=== PATIENT | male | born 1945 | race Caucasian/White ===

== ENCOUNTER 2017-04-28 23:18 | Inpatient (IN) ==
[2017-04-29] MEDS ORDERED: Amiodarone Premix 360 MG/200 ML BAG IVC SCH (01:15)
[2017-04-29] MEDS ORDERED: Ondansetron 4 MG/2 ML VIAL IVP PRN (01:33)
[2017-04-29] MEDS ORDERED: Naloxone 0.4 MG/ML INJ IVP PRN (01:33)
[2017-04-29] MEDS ORDERED: Amiodarone Premix 360 MG/200 ML BAG IVC ONE (02:14)
[2017-04-29 02:28] LABS: Basophils # 0.1 K/mcL (0.0-0.2); Eosinophils # 0.2 K/mcL (0.0-0.6); Eosinophils % 1.8 %; Hematocrit 41.6 % (37.5-50.1); Hemoglobin 14.2 g/dL (12.9-16.9); Immature Granulocytes % 0.4 % (0-4); Immature Platelets 3.2 % (1.1-6.1); Lymphocytes # 2.7 K/mcL (0.6-4.6); Lymphocytes % 26.5 %; Mean Corpuscular HGB Conc 34.1 g/dL (31.6-35.5); Mean Corpuscular Hemoglobin 29.6 pg (28.0-33.3); Mean Corpuscular Volume 86.7 fL (83.0-100.0); Mean Platelet Volume 9.6 fL (9.4-12.4); Monocytes # 0.8 K/mcL (0.0-1.3); Monocytes % 8.1 %; Neutrophils # 6.4 K/mcL (1.6-8.9); Platelet Count 212 K/mcL (140-400); Segmented Neutrophils % 62.2 %
[2017-04-29 02:33] LABS: INR 2.3; Prothrombin Time 25.2 Seconds (9.4-12.1)
[2017-04-29 02:41] LABS: Alanine Aminotransferase 11 Units/L (0-55); Albumin 3.2 g/dL (3.5-5.0); Alkaline Phosphatase 55 Units/L (38-126); Aspartate Amino Transferase 20 Units/L (5-34); BUN/Creatinine Ratio 11 (6-26); Bilirubin,Total 0.2 mg/dL (0.2-1.2); Blood Urea Nitrogen 10 mg/dL (8-26); Carbon Dioxide 25 mEq/L (19-29); Chloride 105 mEq/L (98-109); Globulin 3.3 g/dL (2.4-3.5); Glucose 96 mg/dL (70-99); Magnesium 1.9 mg/dL (1.6-2.6); Osmolality,Calculated 281 (280-300); Sodium 136 mEq/L (136-145); Total Protein 6.5 g/dL (6.0-8.3); eGFR For African Americans > 60 (> 60); eGFR For Non-African Americans > 60 (> 60)
[2017-04-29] MEDS ORDERED: *HR* Warfarin 5 MG TABLET PO SCH (02:45)
[2017-04-29] MEDS ORDERED: *HR* Warfarin 4 MG TABLET PO SCH ×3 (02:45→18:00)
[2017-04-29] MEDS: diazePAM 5 MG TABLET PO SCH ×2 (02:57→21:37)
[2017-04-29] MEDS: Lisinopril 20 MG TABLET PO SCH ×3 (02:57→21:37)
--- NOTE | 2017-04-29 03:11 | Internal Med History&Physical ---
Date of Encounter: 04/29/17 Time of Encounter: 01:50 Assessment and Plan (1) Ventricular tachycardia Current visit: Yes Status: Acute Patient had syncope yesterday Was found to have V.Tach in ER and got amio bolus and gtt EKG not available for review Will obtain EKG from [facility] ER Continue amio gtt Resume PO amiodarone and BB Cycle cardiac enzymes. Initial troponin is elevated. Could be related to his V.Tach Will check limited ECHO for any WMAs He had stress test Oct, 2016 which showed fixed defect but no reversible defects Cardiology consult AICD device interrogation Admit to inpatient status to step down unit High risk due to risk of lethal arrhythmias Expected to be admitted for at least 2 midnights Expected DC dispo is to home (2) CAD (coronary artery disease) Current visit: Yes Status: Chronic No CP or anginal symptoms though the patient had syncope Cycle cardiac enzymes. Initial troponin is elevated. Could be related to his V.Tach Will check limited ECHO for any WMAs He had stress test Oct, 2016 which showed fixed defect but no reversible defects Continue ASA, statin and BB Cardio consult Qualifiers: Coronary Disease-Associated Artery/Lesion type: [place] artery [place] vs. transplanted heart: [place] heart Associated angina: without angina Qualified Code(s): I25.10 - Atherosclerotic heart disease of [place] coronary artery without angina pectoris (3) HTN (hypertension) Current visit: Yes Status: Chronic Controlled BP Continue home meds Qualifiers: Hypertension type: essential hypertension Qualified Code(s): I10 - Essential (primary) hypertension (4) Tobacco abuse Current visit: Yes Status: Chronic Counselled regarding cessation Patient not willing to quit (5) Atrial fibrillation Current visit: Yes Status: Chronic On coumadin. INR therapeutic. Continue coumadin Patient is currently paced @ 60/min Continue amio gtt, PO amio and BB Qualifiers: Atrial fibrillation type: paroxysmal Qualified Code(s): I48.0 - Paroxysmal atrial fibrillation Internal Medicine - H&P: HPI Chief complaint: Syncope and ventricular tachycardia Admitted From: Hospital to Hospital Transfer Plans for Post Hospital Care: Home History of present illness: Mr. Agudelo is a 71 year old male who has been transferred from [facility] emergency room to [facility] due to further evaluation for ventricular tachycardia. The patient presented to the emergency room at [facility] due to syncope. Patient states that he was out in his yard when he suddenly passed out. He does not remember how long he was unconscious. He denies any urinary or bowel incontinence. He reports having a condon sensation and feeling tired prior to passing out. He denies having lightheadedness, palpitations, chest pain or shortness of breath at the time of passing out. He denies any fever or chills. He denies any nausea, diaphoresis, vomiting, diarrhea or constipation. He denies any abdominal pain, weight changes recently. He reports compliance with his amiodarone. He states that he is due for his yearly checkup of his defibrillator at the end of this month. When he presented to [facility], he was found to have sustained ventricular tachycardia. He was placed on amiodarone drip after being given an amiodarone bolus. While on the drip, he converted to atrial fibrillation with rapid ventricular response. He has been transferred to [facility] for higher level of care and evaluation by cardiology. Currently, he denies any chest pain, shortness of breath or palpitations or feeling lightheaded. He reports that the pacemaker/defibrillator was first placed in 2001 after he had a sudden cardiac arrest. He states that he had replacement of the defibrillator last year. He states that he had stents placed for [place] in 2007 which was the only time he had stents put in. He continues to smoke and is not willing to quit. Past Med Surg Social Fam HX - Past Medical History Attestation: Yes The following information was validated with the patient. Medical history: aortic aneurysm, arthritis, atrial fibrillation, coronary artery disease, hyperlipidemia, hypertension, myocardial infarction, peripheral artery disease, other (Sudden cardiac arrest) Psychiatric history: anxiety, panic disorder - Past Surgical History Surgical History: angioplasty/stent, herniorrhaphy, pacemaker/AICD, other - Social History Smoking Status: Current every day smoker Packs per day: 2 Smokeless Tobacco Status: No Alcohol use: none Drug use: none Current living situation: Home, With Family Activity Level: Independent ambulation Recent Out of Country Travel Within the Last 8 Weeks: No Exposure or Possible Exposure to Illness During Travel: No - Family History Father Family Member Ethnicity: Non- Living Status: Hx Family Cardiac Disorders: Yes Hx Family Respiratory Disorders: No Hx Family Cancer: No Hx Family GI Disorders: No Internal Medicine - H&P: Meds Atenolol [Tenormin] 150 mg PO HS 06/13/15 [History] Benazepril HCl 20 mg PO HS 06/13/15 [History] Cyclobenzaprine [Flexeril] 5 mg PO HS 06/13/15 [History] Diazepam [Valium] 5 mg PO HS 06/13/15 [History] Warfarin [Coumadin] 5 mg PO Q48H 09/13/15 [History] Amiodarone [Cordarone] 200 mg PO HS 10/30/15 [History] Alfuzosin HCl [Uroxatral] 10 mg PO BID 04/22/16 [History] Polyethylene Glycol 3350 [MiraLAX] 17 gm PO DAILY PRN 04/22/16 [History] Psyllium Husk/Aspartame [Metamucil Powder] 174 gm PO DAILY 04/22/16 [History] Clopidogrel [Plavix] 75 mg PO DAILY #30 tablet 11/02/16 [Rx] Digoxin [Lanoxin] 0.125 mcg PO HS 11/02/16 [History] Warfarin [Coumadin] 4 mg PO Q48H #0 11/02/16 [Rx] Allergies No Known Allergies Allergy (Verified 04/29/17 02:00) All Systems PM: A 10-system review of systems was performed and is negative for pertinent findings except as documented above in the HPI. Review of systems: 10 systems have been reviewed and are negative except as mentioned in the history of present illness - Constitutional Vitals: Pulse Pulse Ox 79 97 04/29/17 01:32 04/29/17 01:32 Exam: Gen.: Lying in bed. No acute distress. Eyes: Pupils equal, round and reactive to light. Extraocular muscles intact. ENT: Moist mucous membranes. No oropharyngeal erythema or discharge. Chest: Clear to auscultation bilaterally. No adventitious sounds present. Pacemaker/defibrillator on the left side of the chest. CVS: First and second heart sounds present. No murmurs, rubs or gallops. Regular rate and rhythm. Abdomen: Soft, nontender, nondistended. Bowel sounds present. No hepatosplenomegaly. Skin: No decubitus ulcers appreciated. STEAM FLATTENER: No focal neuro deficits present. Psychiatric: Alert, awake and oriented to time, place and person. Lymphatic system: No lymphadenopathy appreciated Internal Med - H&P Results - Labs CBC & Chem 7: 04/29/17 02:19 04/29/17 02:19 Labs: Short CBC 04/29/17 Range/Units 02:19 WBC 10.3 (4.3-11.1) K/mcL Hgb 14.2 D (12.9-16.9) g/dL Hct 41.6 (37.5-50.1) % Plt Count 212 (140-400) K/mcL Neutrophils # 6.4 (1.6-8.9) K/mcL BMP 04/29/17 02:19 Sodium 136 Potassium 4.0 Chloride 105 Carbon Dioxide 25 BUN 10 Creatinine 0.90 Glucose 96 Calcium 9.0 Cardiac Enzymes 04/29/17 Range/Units 02:19 Troponin I 0.16 H* (0-0.03) ng/mL Liver Function 04/29/17 Range/Units 02:19 Total Bilirubin 0.2 (0.2-1.2) mg/dL AST 20 (5-34) Units/L ALT 11 (0-55) Units/L Alkaline Phosphatase 55 (38-126) Units/L Albumin 3.2 L (3.5-5.0) g/dL - EKG Data EKG comments: 04/29/17 03:12 - EKG not available for review - Diagnostic Studies Chest x-ray Status: image reviewed by me (Dual-lead AICD in place. No acute abnormality detected)
[2017-04-29] MEDS ORDERED: 0.9 % Sodium Chloride 500 ML IVC ONE (04:04)
[2017-04-29] MEDS ORDERED: Psyllium 1 PACKET POWD.PACK PO SCH (09:00)
[2017-04-29] MEDS ORDERED: *HR* Amiodarone 200 MG TABLET PO SCH (09:00)
--- NOTE | 2017-04-29 09:12 | Event Note ---
Date of Encounter: 04/29/17 Time of Encounter: 08:40 Patient is a 71y/o male with PMH of Atrial Fibrillation on anticoagulation, CAD , HTN, s/p AICD, HLD, PAD who was transferred from [facility] for further management of Ventricular tachycardia. Patient was found to be in Vtach upon arrival and was sustaining HR around 180s. He received Amiodarone bolus and was placed on Amiodarone drip which provided adequate rate control and converted his rhythm to Atrial Fibrillation. Patient seen and examined at bedside. He is resting comfortably in bed and reports of no distress at this time. Denies any chest pain, palpitations, dizziness, or any discomfort at this time. Rate currently controlled on low dose amiodarone gtt. He did not receive his PO Amiodarone dose overnight. Will start his home PO amiodarone dose at this time and titrate off the drip. Patient reports of taking Atenolol, Digoxin, and Amiodarone at bedtime. BP within acceptable range at this time. Will continue to closely monitor. Cardiology consultation requested for AICD device interrogation follow up 2D echo Patient currently adequately anticoagulated with Coumadin. INR within therapeutic range. Will continue to monitor. Goal INR: 2-3
[2017-04-29] MEDS ORDERED: hydroCHLOROthiazide 25 MG TABLET PO SCH (10:00)
[2017-04-29] MEDS ORDERED: *HR* Digoxin 0.125 MG TABLET PO SCH ×2 (10:00→21:00)
--- NOTE | 2017-04-29 14:32 | Cardiology Consult Note ---
Date of Encounter: 04/29/17 Time of Encounter: 14:30 Assessment and Plan (1) Ventricular tachycardia Current Visit: Yes Status: Acute Per Cardiology: ICD interrogation showed 1 ICD shock for Vfib. Per discussion with Dr. Keon Cortez, stop amio gtt, increase amio gtt to 200mg PO BID, will stop digoxin, will continue current dose of BB. Will stop HCTZ in case need to titrate BB. Will proceed with [facility] for eval of CAD causing VF and shock. Mild trop 0.16 suspect d/t ICD shock-- do not suspect NSTEMI, no cardiac rehab warranted. Mg 1.9 and K 4.0. Current EF 45%. (2) Atrial fibrillation Current Visit: Yes Status: Chronic Per Cardiology: History of PAF on amiodarone 200mg PO daily, atenolol 150mg PO daily and digoxin 0.125mg PO daily. He is anticoagulated with coumadin. Currently rate controlled. ICD interrogation showed A. fib with RVR. Increasing amiodarone to 200 mg by mouth twice a day per discussion with Dr. Keon Cortez. We'll hold Coumadin for now with plans for left heart catheterization for further ischemic evaluation. Will consider bridging when INR less than 2.0. Qualifiers: Atrial fibrillation type: paroxysmal Qualified Code(s): I48.0 - Paroxysmal atrial fibrillation (3) CAD (coronary artery disease) Current Visit: Yes Status: Chronic Per Cardiology: History of CAD with last heart catheterization September 2008 with drug-eluting stent to mid LAD 90% and distal LAD 70% lesion. Negative nuclear stress test October 2016. On asa, BB. Consider adding statin. Qualifiers: Coronary Disease-Associated Artery/Lesion type: [place] artery [place] vs. transplanted heart: [place] heart Associated angina: without angina Qualified Code(s): I25.10 - Atherosclerotic heart disease of [place] coronary artery without angina pectoris (4) Tobacco abuse Current Visit: Yes Status: Chronic Per Cardiology: Continues to smoke. Smoking cessation encouraged. Does not want nicotine patch. (5) AAA (abdominal aortic aneurysm) Current Visit: No Status: Chronic Per Cardiology: History of endovascular AAA and left common iliac stent/angioplasty by Dr. Gilmore 10/2016. Qualifiers: Presence of rupture: without rupture Qualified Code(s): I71.4 - Abdominal aortic aneurysm, without rupture Discussion w patient/family: The assessment and plan as outlined above was discussed with the patient and/or family members who expressed understanding and agreement. All questions were answered. Thank you for involving us in the care of your patient. Please call with any questions. History of Present Illness Consult date: 04/29/17 Requesting physician: Rebeca Green Consult reason: VT, ICD shock, afib RVR Chief complaint: Syncope History of present illness: ELECTROPHYSIOLOGY CONSULT: Previous recordfs reviewed: "Mr. Agudelo is a 71 year old male presenting for a syncopal event. Medical history is significant for myocardial infarction associated with cardiac arrest associated with memory impairment from prolonged resuscitation. He has an AICD in place and a history of PAF. He's had periods of AF RVR associated with device discharge leading to the addition of amiodarone. He recently underwent stress testing in October 2016 demonstrating infarct without ischemia. LVEF 40 -45% range on prior studies. Last C was in 2007 where he underwent PCI to mid and distal LAD. Patient states he had feeling of heart racing for several hours yesterday and then in the evening after letting his dog back in the house, he suddenly passed out without warning. He thinks he was unconscious for a few seconds. He woke up without confusion. He called 911. He denies recent chest pain. He admits compliance with medications. He denies new or OTC medications". Patient confirms above findings. He denies any chest pain, shortness of breath, palpitations over the past few weeks prior to this event. Ports complaints medications. Denies any active bleeding or blood loss. Reports compliance with Coumadin. Reports pending tooth extraction next Tuesday. Past Med Surg Social Fam HX - Past Medical History Attestation: Yes The following information was validated with the patient. Source: patient, old records reviewed, obtained from family Medical history: aortic aneurysm, arthritis, atrial fibrillation, coronary artery disease, hyperlipidemia, hypertension, myocardial infarction, peripheral artery disease, other (Sudden cardiac arrest) Psychiatric history: anxiety, panic disorder - Past Surgical History Surgical History: angioplasty/stent, herniorrhaphy, pacemaker/AICD, other - Social History Smoking Status: Current every day smoker Packs per day: 2 Smokeless Tobacco Status: No Alcohol use: none Drug use: none - Family History Father Family Member Ethnicity: Non- Living Status: Hx Family Cardiac Disorders: Yes Hx Family Respiratory Disorders: No Hx Family Cancer: No Hx Family GI Disorders: No Medications and Allergies Amiodarone [Cordarone] 200 mg PO DAILY 04/29/17 [History] Aspirin [Lo-Dose Aspirin EC] 81 mg PO DAILY 04/29/17 [History] Atenolol [Tenormin] 150 mg PO DAILY 04/29/17 [History] Benazepril HCl [Lotensin] 20 mg PO DAILY 04/29/17 [History] Cyclobenzaprine [Flexeril] 10 mg PO BID 04/29/17 [History] Digoxin [Lanoxin] 0.125 mg PO DAILY 04/29/17 [History] Lactobacillus Acidophilus [Acidophilus] 3 each PO DAILY 04/29/17 [History] Polyethylene Glycol 3350 [MiraLAX bowel prep] 17 gm PO DAILY 04/29/17 [History] Warfarin [Coumadin] 4 mg PO Q48H 04/29/17 [History] Warfarin [Coumadin] 4.5 mg PO Q48H 04/29/17 [History] hydroCHLOROthiazide [Hydrochlorothiazide] 12.5 mg PO DAILY 04/29/17 [History] Allergies No Known Allergies Allergy (Verified 04/29/17 02:00) All Systems Review: A 10-system review of systems was performed and is negative for pertinent findings except as documented above in the HPI. - Cardiovascular Cardiovascular: as per HPI, syncope - Musculoskeletal Musculoskeletal: back pain Physical Examination Vital Signs, Last 4 Hours Temp Pulse Resp BP Pulse Ox 04/29/17 13:03 59 22 116/68 92 04/29/17 10:47 97.7 F 63 20 123/78 99 General: Conversant, No Apparent Distress HEENT: Atraumatic, Normocephaly, Mucus Membranes Moist Neck: No JVD, Normal carotid pulses Cardiac: Normal S1 and S2, No Murmur, Other (Irregularly irregular) Lungs: Normal Breath Sounds, No Wheeze, Rales, Rhonchi Neuro: Alert and responsive, No focal deficits noted Abdomen: Soft, Non-Tender Skin: No rashes noted on visualized skin Musculoskeletal: No Chest Wall Tenderness Extremities: No Clubbing, No Cyanosis, No Edema, Normal Pulses Results 04/29/17 02:19 04/29/17 02:19 Lab Results Laboratory Tests 04/29/17 04/29/17 04/29/17 02:19 02:19 02:19 INR 2.3 Potassium 4.0 Magnesium 1.9 AST 20 ALT 11 Troponin I 0.16 H* 04/29/17 08:00 INR Potassium Magnesium AST ALT Troponin I 0.14 H* Active Medications Acetaminophen (Tylenol) 650 mg PO Q6HR PRN PRN Reason: Mild Pain (1-3) Stop: 10/29/17 01:34 Amiodarone HCl (Cordarone) 200 mg PO BID [facility] Stop: 10/29/17 21:01 Aspirin (Aspirin) 81 mg PO DAILY [facility] Stop: 10/30/17 09:01 Atenolol (Tenormin) 150 mg PO HS [facility] Stop: 10/29/17 21:01 Cyclobenzaprine HCl (Flexeril) 5 mg PO HS [facility] Stop: 10/29/17 02:46 Last Admin: 04/29/17 02:57 Dose: 5 mg Diazepam (Valium) 5 mg PO HS [facility] Stop: 10/29/17 02:46 Last Admin: 04/29/17 02:57 Dose: 5 mg Lisinopril (Zestril) 20 mg PO HS [facility] Stop: 10/29/17 02:46 Last Admin: 04/29/17 04:05 Dose: Not Given Naloxone HCl (Narcan) 0.4 mg IVP Q2MIN PRN PRN Reason: Opioid Reversal Stop: 10/29/17 01:34 Ondansetron HCl (Zofran) 4 mg IVP Q8HR PRN PRN Reason: Nausea And Vomiting Stop: 10/29/17 01:34 Polyethylene Glycol (Miralax) 17 gm PO DAILY PRN PRN Reason: Constipation Stop: 10/29/17 02:40 Psyllium Hydrophilic Mucilloid (Metamucil Fiber Singles Packet) 1 packet PO DAILY@1999 [facility] Stop: 10/29/17 18:01 - Imaging and Cardiology Chest Xray: report reviewed (from [facility]-- no acute CP process) Stress Test: report reviewed Cardiac cath: pending - EKG Interpretation EKG results cardiology: personally reviewed Consult Discharge Plan - Plan Referrals: Joselo Thomas MD [Primary Care Provider] -
--- NOTE | 2017-04-29 14:47 | Cardiology Consult Note ---
Date of Encounter: 04/29/17 Time of Encounter: 10:00 Assessment and Plan (1) Syncope and collapse Current Visit: No Status: Acute Mr. Agudelo had a syncopal event yesterday. We interrogated his device demonstrating device discharge possibly for ventricular fibrillation. EP consult has been requested. He has been started on amio gtt. May need to consider LHC. Electrolytes WNL. (2) Atrial fibrillation Current Visit: Yes Status: Chronic History of PAF on amiodarone, BB and digoxin. He is anticoagulated with coumadin. Qualifiers: Atrial fibrillation type: paroxysmal Qualified Code(s): I48.0 - Paroxysmal atrial fibrillation Discussion w patient/family: The assessment and plan as outlined above was discussed with the patient and/or family members who expressed understanding and agreement. All questions were answered. Thank you for involving us in the care of your patient. Please call with any questions. History of Present Illness Consult date: 04/29/17 Requesting physician: Wolf Villar Consult reason: Syncope Chief complaint: Syncope, palpitations History of present illness: Mr. Agudelo is a 71 year old male presenting for a syncopal event. Medical history is significant for myocardial infarction associated with cardiac arrest associated with memory impairment from prolonged resuscitation. He has an AICD in place and a history of PAF. He's had periods of AF RVR associated with device discharge leading to the addition of amiodarone. He recently underwent stress testing in October 2016 demonstrating infarct without ischemia. LVEF 40 -45% range on prior studies. Last [facility] was in 2007 where he underwent PCI to mid and distal LAD. Patient states he had feeling of heart racing for several hours yesterday and then in the evening after letting his dog back in the house, he suddenly passed out without warning. He thinks he was unconscious for a few seconds. He woke up without confusion. He called 911. He denies recent chest pain. He admits compliance with medications. He denies new or OTC medications. Past Med Surg Social Fam HX - Past Medical History Attestation: Yes The following information was validated with the patient. Medical history: aortic aneurysm, arthritis, atrial fibrillation, coronary artery disease, hyperlipidemia, hypertension, myocardial infarction, peripheral artery disease, other (Sudden cardiac arrest) Psychiatric history: anxiety, panic disorder - Past Surgical History Surgical History: angioplasty/stent, herniorrhaphy, pacemaker/AICD, other - Social History Smoking Status: Current every day smoker Packs per day: 2 Smokeless Tobacco Status: No Alcohol use: none Drug use: none - Family History Father Family Member Ethnicity: Non- Living Status: Hx Family Cardiac Disorders: Yes Hx Family Respiratory Disorders: No Hx Family Cancer: No Hx Family GI Disorders: No Medications and Allergies Amiodarone [Cordarone] 200 mg PO DAILY 04/29/17 [History] Aspirin [Lo-Dose Aspirin EC] 81 mg PO DAILY 04/29/17 [History] Atenolol [Tenormin] 150 mg PO DAILY 04/29/17 [History] Benazepril HCl [Lotensin] 20 mg PO DAILY 04/29/17 [History] Cyclobenzaprine [Flexeril] 10 mg PO BID 04/29/17 [History] Digoxin [Lanoxin] 0.125 mg PO DAILY 04/29/17 [History] Lactobacillus Acidophilus [Acidophilus] 3 each PO DAILY 04/29/17 [History] Polyethylene Glycol 3350 [MiraLAX bowel prep] 17 gm PO DAILY 04/29/17 [History] Warfarin [Coumadin] 4 mg PO Q48H 04/29/17 [History] Warfarin [Coumadin] 4.5 mg PO Q48H 04/29/17 [History] hydroCHLOROthiazide [Hydrochlorothiazide] 12.5 mg PO DAILY 04/29/17 [History] Allergies No Known Allergies Allergy (Verified 04/29/17 02:00) All Systems Review: A 10-system review of systems was performed and is negative for pertinent findings except as documented above in the HPI. - Cardiovascular Cardiovascular: as per HPI Physical Examination Vital Signs, Last 4 Hours Temp Pulse Resp BP Pulse Ox 04/29/17 13:03 59 22 116/68 92 04/29/17 10:47 97.7 F 63 20 123/78 99 General: Conversant, No Apparent Distress HEENT: Atraumatic, Normocephaly, Mucus Membranes Moist Neck: No JVD, Normal carotid pulses Cardiac: Reg Rate and Rhythm, Normal S1 and S2, No Murmur Lungs: Normal Breath Sounds, No Wheeze, Rales, Rhonchi Neuro: Alert and responsive, No focal deficits noted Abdomen: Soft, Other (bowel sounds present) Extremities: No Edema, Normal Pulses Results 04/29/17 02:19 04/29/17 02:19 Lab Results 04/29/17 04/29/17 04/29/17 02:19 02:19 02:19 WBC 10.3 Hgb 14.2 D Hct 41.6 Plt Count 212 INR 2.3 Sodium Potassium Chloride Carbon Dioxide BUN Creatinine Glucose Calcium Magnesium Total Bilirubin AST ALT Alkaline Phosphatase Troponin I 0.16 H* 04/29/17 04/29/17 04/29/17 02:19 08:00 13:54 WBC Hgb Hct Plt Count INR Sodium 136 Potassium 4.0 Chloride 105 Carbon Dioxide 25 BUN 10 Creatinine 0.90 Glucose 96 Calcium 9.0 Magnesium 1.9 Total Bilirubin 0.2 AST 20 ALT 11 Alkaline Phosphatase 55 Troponin I 0.14 H* 0.11 H* - Imaging and Cardiology Stress Test: report reviewed (10/2016) Echo: report reviewed (Limited Echo 04/29; EF 45%) Cardiac cath: report reviewed (2007) - EKG Interpretation EKG results cardiology: personally reviewed Consult Discharge Plan - Plan Referrals: Joselo Thomas MD [Primary Care Provider] -
[2017-04-29] MEDS: Psyllium 1 PACKET POWD.PACK PO SCH ×2 (15:56→16:55)
[2017-04-29] MEDS ORDERED: Warfarin perPT PO PRN (18:00)
[2017-04-29] MEDS: *HR* Amiodarone 200 MG TABLET PO SCH (21:36)
[2017-04-29] MEDS: POLYETHYLENE GLYCOL PO SCH (21:36)
[2017-04-29] MEDS: SENNOSIDES 25 MG PO SCH (21:36)
[2017-04-29] MEDS: METAMUCIL PO SCH (21:36)
[2017-04-30 04:29] LABS: Basophils # 0.1 K/mcL (0.0-0.2); Basophils % 0.8 %; Eosinophils # 0.3 K/mcL (0.0-0.6); Eosinophils % 2.7 %; Hematocrit 42.3 % (37.5-50.1); Hemoglobin 14.2 g/dL (12.9-16.9); Immature Granulocytes % 0.5 % (0-4); Lymphocytes # 2.1 K/mcL (0.6-4.6); Lymphocytes % 22.2 %; Mean Corpuscular HGB Conc 33.6 g/dL (31.6-35.5); Mean Corpuscular Hemoglobin 29.5 pg (28.0-33.3); Mean Corpuscular Volume 87.8 fL (83.0-100.0); Mean Platelet Volume 9.3 fL (9.4-12.4); Monocytes # 0.9 K/mcL (0.0-1.3); Monocytes % 9.2 %; Neutrophils # 6.1 K/mcL (1.6-8.9); Platelet Count 195 K/mcL (140-400); Red Blood Count 4.82 M/mcL (4.19-5.50); Red Cell Distribution Width 13.9 % (11.5-14.5); Segmented Neutrophils % 64.6 %
[2017-04-30 04:37] LABS: Prothrombin Time 21.5 Seconds (9.4-12.1)
[2017-04-30 04:43] LABS: BUN/Creatinine Ratio 14 (6-26); Blood Urea Nitrogen 11 mg/dL (8-26); Calcium 8.7 mg/dL (8.6-10.8); Carbon Dioxide 24 mEq/L (19-29); Chloride 104 mEq/L (98-109); Glucose 90 mg/dL (70-99); Magnesium 1.9 mg/dL (1.6-2.6); Osmolality,Calculated 281 (280-300); Phosphorous 3.6 mg/dL (2.3-4.7); Potassium 3.9 mEq/L (3.5-4.5); Sodium 136 mEq/L (136-145); eGFR For African Americans > 60 (> 60); eGFR For Non-African Americans > 60 (> 60)
--- NOTE | 2017-04-30 08:17 | Cardiology Progress Note ---
Date of Encounter: 04/30/17 Time of Encounter: 09:00 Assessment and Plan (1) Ventricular fibrillation seen on school lunch monitor Current Visit: Yes Status: Acute Per Cardiology: ICD interrogation showed 1 ICD shock for Vfib. Now on amio 200mg PO BID, off digoxin, remains on home BB. Mild trop 0.16 suspect d/t ICD shock-- do not suspect NSTEMI. Mg 1.9 and K 3.9. Current EF 45%. Will proceed with LHC for eval of CAD causing VF and shock. Coumadin on hold-- INR 2.0, discussed and reviewed with Dr. Green, no reversal clinically warranted, will plan for LHC tomorrow if INR less than 1.8. (2) Atrial fibrillation Current Visit: Yes Status: Chronic Per Cardiology: History of PAF-- currently on amiodarone and BB. ICD interrogation showed A. fib with RVR. Telemetry reviewed the past 12 hours shows sinus rhythm with atrial pacing with no recurrence of A. fib. Anti-coagulated with Coumadin, however currently on hold for pending catheterization. Will resume once catheterization completed. Of note, patient was supposed to hold Coumadin beginning yesterday for pending tooth extraction next week as well. No need for bridging. Qualifiers: Atrial fibrillation type: paroxysmal Qualified Code(s): I48.0 - Paroxysmal atrial fibrillation (3) CAD (coronary artery disease) Current Visit: Yes Status: Chronic Per Cardiology: History of CAD with last heart catheterization September 2008 with drug-eluting stent to mid LAD 90% and distal LAD 70% lesion. Negative nuclear stress test October 2016. CP free. On asa, BB. Will add statin. Qualifiers: Coronary Disease-Associated Artery/Lesion type: [place] artery [place] vs. transplanted heart: [place] heart Associated angina: without angina Qualified Code(s): I25.10 - Atherosclerotic heart disease of [place] coronary artery without angina pectoris (4) Tobacco abuse Current Visit: Yes Status: Chronic Per Cardiology: Continues to smoke. Smoking cessation encouraged. Does not want nicotine patch. (5) AAA (abdominal aortic aneurysm) Current Visit: No Status: Chronic Per Cardiology: History of endovascular AAA and left common iliac stent/angioplasty by Dr. Gilmore 10/2016. Qualifiers: Presence of rupture: without rupture Qualified Code(s): I71.4 - Abdominal aortic aneurysm, without rupture Discussion w patient/family: The assessment and plan as outlined above was discussed with the patient and/or family members who expressed understanding and agreement. All questions were answered. Thank you for involving us in the care of your patient. Please call with any questions. Subjective Principal diagnosis: Vfib Interval history: Patient denies any chest pain, shortness of breath, palpitations, or ICD shocks. Objective Vital Signs, Last 4 Hours Temp Pulse Resp BP Pulse Ox 04/30/17 07:40 97.6 F 04/30/17 04:18 97.2 F L 59 18 115/64 99 General: Conversant, No Apparent Distress Cardiac: Reg Rate and Rhythm, Normal S1 and S2, No Murmur Lungs: Normal Breath Sounds, No Wheeze, Rales, Rhonchi Skin: No rashes noted on visualized skin Extremities: No Edema, Normal Pulses Results 04/30/17 04:05 04/30/17 04:05 Lab Results Laboratory Tests 04/30/17 04:05 INR 2.0 04/30/17 04:05 Potassium 3.9 Magnesium 1.9 Active Medications Acetaminophen (Tylenol) 650 mg PO Q6HR PRN PRN Reason: Mild Pain (1-3) Stop: 10/29/17 01:34 Amiodarone HCl (Cordarone) 200 mg PO BID FEI Stop: 10/29/17 21:01 Last Admin: 04/30/17 08:48 Dose: 200 mg Aspirin (Aspirin) 81 mg PO DAILY FEI Stop: 10/30/17 09:01 Last Admin: 04/30/17 08:48 Dose: 81 mg Atenolol (Tenormin) 150 mg PO HS FEI Stop: 10/29/17 21:01 Last Admin: 04/29/17 21:37 Dose: 150 mg Cyclobenzaprine HCl (Flexeril) 5 mg PO HS FEI Stop: 10/29/17 02:46 Last Admin: 04/29/17 21:36 Dose: 5 mg Diazepam (Valium) 5 mg PO HS FEI Stop: 10/29/17 02:46 Last Admin: 04/29/17 21:37 Dose: 5 mg Lisinopril (Zestril) 20 mg PO HS FEI Stop: 10/29/17 02:46 Last Admin: 04/29/17 21:37 Dose: 20 mg Naloxone HCl (Narcan) 0.4 mg IVP Q2MIN PRN PRN Reason: Opioid Reversal Stop: 10/29/17 01:34 Ondansetron HCl (Zofran) 4 mg IVP Q8HR PRN PRN Reason: Nausea And Vomiting Stop: 10/29/17 01:34 Pharmacy Profile Note (Patient Taking Own Medication) 4 each PO DAILY FEI Stop: 10/29/17 22:01 Last Admin: 04/29/17 21:36 Dose: 4 each Pharmacy Profile Note (Patient Taking Own Medication) 17 each PO BID FEI Stop: 10/29/17 21:01 Last Admin: 04/29/17 21:36 Dose: 17 each Pharmacy Profile Note (Patient Taking Own Medication) 2 each PO DAILY FEI Stop: 10/29/17 21:16 Last Admin: 04/29/17 21:36 Dose: 2 each - Imaging and Cardiology Cardiac cath: pending - EKG Interpretation EKG results cardiology: other (Telemetry reviewed with average heart rate past 12 hours 67, atrial paced, sinus rhythm, no A. fib or VF or VT noted) Consult Discharge Plan - Plan Referrals: Joselo Thomas MD [Primary Care Provider] -
[2017-04-30] MEDS: *HR* Amiodarone 200 MG TABLET PO SCH ×2 (08:48→22:09)
[2017-04-30] MEDS: Aspirin 81 MG TAB.CHEW PO SCH (08:48)
--- NOTE | 2017-04-30 08:54 | Internal Med Progress Note ---
Date of Encounter: 04/30/17 Time of Encounter: 08:10 - Subjective Interval history: Patient seen and examined at bedside. Resting comfortably in bed and reports of feeling well at this time. No overnight issues reported. As per cardiology consultation, patient may go for [facility] today pending reversal of therapeutic INR level. Assessment and Plan (1) Ventricular tachycardia Current visit: Yes Status: Acute Resolved, s/p AICD interrogation Cardiology evaluation appreciated Patient may go for [facility] today Will follow up with cardiology in regards to transfusing FFP for INR reversal continue home dose of BB, Amiodarone, Digoxin at this time (2) CAD (coronary artery disease) Current visit: Yes Status: Chronic No signs of angina present at this time Continue ASA, statin and BB cardiology management as listed above Qualifiers: Coronary Disease-Associated Artery/Lesion type: [place] artery [place] vs. transplanted heart: [place] heart Associated angina: without angina Qualified Code(s): I25.10 - Atherosclerotic heart disease of [place] coronary artery without angina pectoris (3) HTN (hypertension) Current visit: Yes Status: Chronic BP within acceptable range Continue home meds Qualifiers: Hypertension type: essential hypertension Qualified Code(s): I10 - Essential (primary) hypertension (4) Tobacco abuse Current visit: Yes Status: Chronic Patient reports of smoking 1.5ppd and refuses to quit at this time Smoking cessation counseling provided Refused nicotine replacement therapy at this time. (5) Atrial fibrillation Current visit: Yes Status: Chronic Rate currently controlled with BB, Amiodarone, and Digoxin Holding Coumadin for C (possibly today-04/30/17) Qualifiers: Atrial fibrillation type: paroxysmal Qualified Code(s): I48.0 - Paroxysmal atrial fibrillation (6) DVT prophylaxis Current visit: Yes Status: Acute Holding Coumadin at this time ICD - Constitutional Vitals: Temp Pulse Resp BP Pulse Ox 97.6 F 61 18 115/64 99 04/30/17 07:40 04/30/17 04:18 04/30/17 04:18 04/30/17 04:18 04/30/17 04:18 General appearance: Present: cooperative, A&O X 3, pleasant, no acute distress, answers questions appropriately - Head Head exam: Present: atraumatic, normocephalic - Eye Eye exam: Present: normal appearance, conjuntiva pink, sclera anicteric - Respiratory Respiratory exam: Present: CTAB. Absent: accessory muscle use, rales, rhonchi, wheezes - Cardiovascular Cardiovascular exam: Present: irregular rhythm, +S1, +S2 - GI/Abdominal GI/Abdominal exam: Present: normal bowel sounds, soft, no peritoneal signs. Absent: distended, tenderness - Extremities Exam Extremities exam: Present: warm, radial pulses palpable and symetrical. Absent : calf tenderness, pedal edema - Neurological Exam Neurological exam: Present: alert, oriented X3 - Psychiatric Psychiatric exam: Present: normal affect, normal mood Internal Medicine: Result - Labs CBC & Chem 7: 04/30/17 04:05 04/30/17 04:05 Labs: Short CBC 04/30/17 Range/Units 04:05 WBC 9.5 (4.3-11.1) K/mcL Hgb 14.2 (12.9-16.9) g/dL Hct 42.3 (37.5-50.1) % Plt Count 195 (140-400) K/mcL Neutrophils # 6.1 (1.6-8.9) K/mcL BMP 04/30/17 04:05 Sodium 136 Potassium 3.9 Chloride 104 Carbon Dioxide 24 BUN 11 Creatinine 0.81 Glucose 90 Calcium 8.7 Cardiac Enzymes 04/29/17 Range/Units 13:54 Troponin I 0.11 H* (0-0.03) ng/mL - ABG Interpretation ABG results: PT/INR, D-dimer PT 21.5 Seconds (9.4-12.1) H 04/30/17 04:05 Consult Discharge Plan - Plan Referrals: Joselo Thomas MD [Primary Care Provider] -
[2017-04-30] MEDS ORDERED: *HR* Warfarin 5 MG TABLET PO SCH ×2 (09:00→18:00)
[2017-04-30] MEDS: POLYETHYLENE GLYCOL PO SCH ×2 (09:11→22:10)
[2017-04-30] MEDS: METAMUCIL PO SCH ×3 (09:11→20:18)
[2017-04-30] MEDS: SENNOSIDES 25 MG PO SCH ×2 (09:11→22:11)
[2017-04-30] MEDS ORDERED: Warfarin 0.5 MG, Warfarin 4 MG PO SCH (18:00)
[2017-04-30] MEDS: Acetaminophen 325 MG TABLET PO PRN (19:41)
[2017-04-30] MEDS: Lisinopril 20 MG TABLET PO SCH (22:09)
[2017-04-30] MEDS: diazePAM 5 MG TABLET PO SCH (22:10)
[2017-05-01 03:28] LABS: INR 1.5; Prothrombin Time 16.9 Seconds (9.4-12.1)
[2017-05-01 03:37] LABS: BUN/Creatinine Ratio 16 (6-26); Blood Urea Nitrogen 13 mg/dL (8-26); Calcium 8.7 mg/dL (8.6-10.8); Carbon Dioxide 22 mEq/L (19-29); Chloride 105 mEq/L (98-109); Glucose 88 mg/dL (70-99); Magnesium 1.9 mg/dL (1.6-2.6); Osmolality,Calculated 282 (280-300); Phosphorous 4.3 mg/dL (2.3-4.7); Potassium 3.8 mEq/L (3.5-4.5); Sodium 136 mEq/L (136-145); eGFR For African Americans > 60 (> 60); eGFR For Non-African Americans > 60 (> 60)
[2017-05-01 03:41] LABS: Basophils # 0.1 K/mcL (0.0-0.2); Basophils % 1.1 %; Eosinophils # 0.2 K/mcL (0.0-0.6); Eosinophils % 2.6 %; Hemoglobin 14.1 g/dL (12.9-16.9); Immature Granulocytes % 0.4 % (0-4); Lymphocytes # 2.1 K/mcL (0.6-4.6); Lymphocytes % 24.2 %; Mean Corpuscular HGB Conc 34.4 g/dL (31.6-35.5); Mean Corpuscular Hemoglobin 30.3 pg (28.0-33.3); Mean Platelet Volume 9.5 fL (9.4-12.4); Monocytes # 0.9 K/mcL (0.0-1.3); Monocytes % 10.9 %; Neutrophils # 5.2 K/mcL (1.6-8.9); Platelet Count 198 K/mcL (140-400); Red Blood Count 4.66 M/mcL (4.19-5.50); Red Cell Distribution Width 13.8 % (11.5-14.5); Segmented Neutrophils % 60.8 %
[2017-05-01] MEDS: *HR* Amiodarone 200 MG TABLET PO SCH ×2 (08:03→22:27)
[2017-05-01] MEDS: Aspirin 81 MG TAB.CHEW PO SCH (08:03)
[2017-05-01] MEDS: METAMUCIL PO SCH (08:04)
[2017-05-01] MEDS: SENNOSIDES 25 MG PO SCH (08:05)
[2017-05-01] MEDS: POLYETHYLENE GLYCOL PO SCH ×2 (08:05→20:23)
--- NOTE | 2017-05-01 09:59 | Event Note ---
Date of Encounter: 05/01/17 Time of Encounter: 10:00 - Cardiology Event Note Laboratory Tests 05/01/17 02:29 INR 1.5 Patient denies any CP. SOB, palps. Denies ICD shocks. [facility] today.
--- NOTE | 2017-05-01 10:24 | Internal Med Progress Note ---
Date of Encounter: 05/01/17 Time of Encounter: 10:22 - Assessment and plan (1) Syncope and collapse Current Visit: No Status: Acute (2) CAD (coronary artery disease) Current Visit: Yes Status: Chronic Qualifiers: Coronary Disease-Associated Artery/Lesion type: [place] artery [place] vs. transplanted heart: [place] heart Associated angina: without angina Qualified Code(s): I25.10 - Atherosclerotic heart disease of [place] coronary artery without angina pectoris (3) HTN (hypertension) Current Visit: Yes Status: Chronic Qualifiers: Hypertension type: essential hypertension Qualified Code(s): I10 - Essential (primary) hypertension (4) Tobacco abuse Current Visit: Yes Status: Chronic (5) Atrial fibrillation Current Visit: Yes Status: Chronic Qualifiers: Atrial fibrillation type: paroxysmal Qualified Code(s): I48.0 - Paroxysmal atrial fibrillation (6) AICD (automatic implantable cardioverter defibrillator) at end of life Current Visit: No Status: Acute Qualifiers: Encounter type: subsequent encounter Qualified Code(s): T82.198D - Other mechanical complication of other cardiac electronic device, subsequent encounter - Subjective Interval history: Mr. Alireza Santoro is a 71-year-old male who has been transferred from intensive care and he is a new patient for me. He will was admitted for syncope. He was noted to have A. fib with RVR and ventricular tachycardia and his defibrillator discharge. Cardiology has seen him and amiodarone was added. Echo showed LV ejection fraction 45% with dilated LV . His is planned for left heart catheter however INR is slightly elevated. - Constitutional Vitals: Temp Pulse Resp BP Pulse Ox 97.6 F 61 18 140/90 97 05/01/17 07:10 05/01/17 07:10 05/01/17 07:10 05/01/17 07:10 05/01/17 08:07 General appearance: Present: cooperative, A&O X 3, pleasant, no acute distress, answers questions appropriately - Head Head exam: Present: atraumatic, normocephalic - Eye Eye exam: Present: PERRL, conjuntiva pink, sclera anicteric Pupils: Present: PERRL - Neck Neck exam general surgery: Present: supple, trachea midline. Absent: lymphadenopathy - Respiratory Respiratory exam: Present: CTAB. Absent: accessory muscle use, rales, rhonchi, wheezes - Cardiovascular Cardiovascular exam: Present: RRR, +S1, +S2. Absent: diastolic murmur, gallop, rubs, systolic murmur - GI/Abdominal GI/Abdominal exam: Present: normal bowel sounds, soft, no peritoneal signs. Absent: distended, tenderness - Extremities Exam Extremities exam: Present: warm, radial pulses palpable and symetrical. Absent : calf tenderness, cyanotic, pedal edema - Neurological Exam Neurological exam: Present: CN II-XII intact, oriented X3, no focal deficits. Absent: pronater drift, facial droop, speech deficit - Skin Skin exam: Present: dry, intact Internal Medicine: Result - Labs CBC & Chem 7: 05/01/17 02:29 05/01/17 02:29 Labs: Short CBC 05/01/17 Range/Units 02:29 WBC 8.5 (4.3-11.1) K/mcL Hgb 14.1 (12.9-16.9) g/dL Hct 41.0 (37.5-50.1) % Plt Count 198 (140-400) K/mcL Neutrophils # 5.2 (1.6-8.9) K/mcL BMP 05/01/17 02:29 Sodium 136 Potassium 3.8 Chloride 105 Carbon Dioxide 22 BUN 13 Creatinine 0.80 Glucose 88 Calcium 8.7 - ABG Interpretation ABG results: PT/INR, D-dimer PT 16.9 Seconds (9.4-12.1) H 05/01/17 02:29 Consult Discharge Plan - Plan Referrals: Joselo Thomas MD [Primary Care Provider] -
[2017-05-01] MEDS ORDERED: *HR* Heparin 10,000 UNIT/10 ML VIAL ONE (12:56)
[2017-05-01] MEDS ORDERED: 0.9 % Sodium Chloride 1,000 ML ONE ×2 (12:56→13:26)
[2017-05-01] MEDS ORDERED: Heparin 1,000 UNITS/500 mL NS 500 ML ONE (12:56)
[2017-05-01] MEDS ORDERED: *HR* Midazolam HCl 5 MG/5 ML VIAL IVP ONE (13:26)
[2017-05-01] MEDS ORDERED: *HR* FentaNYL (PF) 100 MCG/2 ML VIAL ONE (13:26)
--- NOTE | 2017-05-01 14:09 | Pre-Sedation Evaluation ---
Pre-sedation evaluation - Pre-sedation checklist Date of procedure: 05/01/17 Procedure: left heart cath Recent Vitals: Last Vital Signs Temp 97.6 F 05/01/17 07:10 Pulse 61 05/01/17 07:10 Resp 18 05/01/17 07:10 BP 140/90 05/01/17 07:10 Pulse Ox 97 05/01/17 08:07 H&P (including ROS) documented in medical record: Yes Previous reaction to sedatives/anesthetics: No Dietary Status: NPO after Midnight Airway Assessment: Patient can open mouth completely, TMJ function normal Dentition: No loose teeth or bridges Possible difficult airway: No ASA Classification *see protocol: CLASS III-Severe systemic disease, CLASS IV- Severe systemic disease/constant threat to pt's life Plan of Care: Pt appropriate candidate for procedure/moderate/conscious sedation
--- NOTE | 2017-05-01 14:11 | Procedure Note ---
Date of procedure: 05/01/17 Pre-op diagnosis: CMP CAD, V tach Post-op diagnosis: same Anesthesia: local Surgeon: Aman Brown Estimated blood loss (cc): 20 Pathology: none sent Condition: stable Disposition: floor
--- NOTE | 2017-05-01 14:31 | Invasive Diagnostic Lab Proc ---
Name: Alireza Agudelo [facility] Date of Study: 05/01/2017 Date: 1945 Ht: 72.8in Medical Record#: [id number] Age: 71 Wt: 203.27lb Gender: Male BSA: 2.16 Order #: [id number] BMI: 26.97 Physicians Procedure Physician: Aman Brown MD Referring MD: Referring MD: Staff Name Position Time In Alecia Cherry RT (R) Monitor 01:18 PM Damian Farias RN Lab Manager 01:18 PM Jazlyn Dawn RT (R) Scrub 01:18 PM Indications Indication Non-Stemi Procedures Performed Procedure L HRT ARTERY/VENTRICLE ANGIO Pre-Procedure Checklist Informed consent is complete signed and on chart. H\\T\\P is on chart. ID band is on and ID verified with patient. Patient NPO for procedure The procedure was described for the patient and questions were answered. Blood Pressure: 111/77 ECG is on chart. Rhythm: NSR Plan of Care Patient will tolerate the procedure without complications. Adequate level of comfort will be maintained. Hemodynamics will remain stable Patient will recover from procedure without complications. Respiratory function will be maintained. Cardiac rhythm will remain stable. Patient temperature will be maintained. Patient and/or family have verbalized understanding of the procedure. Patient Education Chief Complaint/Reason for Test: Cardiac Cath Developmental Category: Adult (18-64 years) Developmentally Appropriate for Age: Yes Learning Barriers: None Education Needs: Procedure Education Method: Verbal Information Taught: Cardiac Cath Educational Evaluation: Able to repeat information Intravenous Access Time IV Size Location DC'd Fluid/Drip Rate Units RN 01:30 PM 20g 1 /" Patent On Arrival Rt Wrist 0.9NaCl 25 ml/hr Damian Farias RN Allergies No Known Allergies BENADRYL Simvastatin Fluvastatin Pitavastatin Atorvastatin diphenhydramine pain meds cholesterol meds Vital Signs Time BP (mmHg) HR (bpm) O2 Sat. RR (bpm) LOC / % 5 = Fully awake and oriented or at pre-proc level 01:19 PM / % 5 = Fully awake and oriented or at pre-proc level 01:19 PM / % 3 = Answers simple questions/follows commands 01:37 PM / % 4 = Oriented but drowsy 01:53 PM / % 4 = Oriented but drowsy 01:38 PM 156 / 93 62 96 % 21 01:41 PM 157 / 99 61 100 % 24 01:42 PM 157 / 101 61 98 % 21 01:44 PM 155 / 90 60 99 % 26 01:47 PM 146 / 92 60 97 % 12 01:50 PM 146 / 92 60 99 % 18 01:53 PM 147 / 88 60 98 % 24 01:56 PM 141 / 77 60 97 % 21 01:59 PM 138 / 84 60 99 % 20 02:02 PM 143 / 85 62 100 % 24 02:05 PM 153 / 90 62 99 % 35 02:08 PM 153 / 94 61 99 % 22 02:11 PM 150 / 96 60 98 % 27 02:14 PM 144 / 93 60 99 % 34 02:17 PM 136 / 89 60 99 % 17 02:20 PM 143 / 85 60 99 % Procedural Medications Time Medication Dose Units Method Given By 01:41 PM Oxygen 2 L/min nasal cannula Damian Farias RN 01:42 PM Versed 2 mg Intravenous Damian Farias RN 01:42 PM Fentanyl 50 mcg Intravenous Damian Farias RN 01:47 PM Lidocaine 2% 20 ml Subcutaneous Aman Brown MD ASA Classification: CLASS II- Mild systemic disease (i.e. well-controlled diabetes, hypertension, asthma, cigarette smoking) Cyndi Score Preprocedure Postprocedure Activity 2- Moves 4 extremities sustained head lift Activity 2- Moves 4 extremities sustained head lift Circulation 2- SBP +/= 20 points of pre-anesthetic level Circulation 2- SBP +/= 20 points of pre-anesthetic level Consciousness 2- Awake and alert oriented x 3 Consciousness 2- Awake and alert oriented x 3 O2 Saturation 2- Able to maintain O2 satruation of 92% on room air O2 Saturation 2- Able to maintain O2 satruation of 92% on room air Respiratory 2- Able to deep breathe and cough well Respiratory 2- Able to deep breathe and cough well Total Score 10 Total Score 10 Contrast Agent: Isovue Diagnostic Contrast: 75 ml Total Contrast: 75 ml Fluoro Dose: 481 mGy Procedure Log Time Note Enter By 01:18 PM Pt arrived to terrazzo laborer 2 at 13:18 twilson 01:18 PM Patient charges- Angio tray pack, Navilyst 3mm J, Pulse Oximetry and ACIST tubing and transducer twilson 01:18 PM IV Supplies used: J loop Angio Cath. twilson 01:18 PM Case Delayed no twilson :18 PM Alecia Cherry RT (R) Position: Monitor Time in: :18 twilson :18 PM Damian Farias RN Position: Lab Manager Time in: :18 twilson :19 PM Jazlyn Dawn RT (R) Position: Scrub Time in: :18 twilson :19 PM ASA Class CLASS II- Mild systemic disease (i.e. well-controlled diabetes, hypertension, asthma, cigarette smoking) twilson : PM Time: 13:19 Patient comfortable and pain free: Yes ilson : PM Time: 13:19LOC: 5 = Fully awake and oriented or at pre-proc level twilson :34 PM Physician arrived 13: twilson : PM Meet and greet completed ilson :34 PM Sign in performed according to hospital policy. twilson :34 PM Procedure start : twilson :37 PM Time: :LOC: 3 = Answers simple questions/follows commands twilson PM Time: 13:19 Patient comfortable and pain free: Yes twilson : PM CathStat :37 PM Vitals capture started with the following parameters, Patient=Adult, Interval=3 min, Initial Rzzswaep=151 mmHg, Deflation Rate=5 mmHg, Cuff placed on Right Arm 01:38 PM HR=62 bpm, WTKV=379/93 mmhg, SpO2=96.0 %, Resp=21 B/min 01:41 PM HR=61 bpm, PMRC=875/99 mmhg, CrK8=734.0 %, Resp=24 B/min 01:41 PM Hair removed from procedure site in procedure lab using clippers. Bilateral groin prepped with Chloraprep by Alecia Cherry RT (R), safety strap applied then patient was draped. Skin intact. tw: PM Recorded ECG: HR=61 Condition=Condition 1 01:41 PM Time: 13:41 Oxygen on at 2 L/min per nasal cannula by Damian Farias RN ilson :42 PM Time: 13:42 Versed 2 mg Intravenous Given by Damian Farias RN gregory :42 PM Time: 13:42 Fentanyl 50 mcg Intravenous Given by Damian Farias RN ilson :42 PM NIBP STAT measurement started. 01:42 PM HR=61 bpm, ISVA=823/101 mmhg, SpO2=98.0 %, Resp=21 B/min 01:44 PM HR=60 bpm, YTIE=884/90 mmhg, SpO2=99.0 %, Resp=26 B/min 01:46 PM Time out performed according to hospital policy twilson 01:47 PM HR=60 bpm, NHIF=350/92 mmhg, SpO2=97.0 %, Resp=12 B/min 01:47 PM Pressure channel 1 zeroed. 01:47 PM Time: 13:47 20 ml Lidocaine 2% to right groin Subcutaneous Given by Aman Brown MD twilson 01:49 PM Access obtained by percutaneous puncture. 5Fr 10cm Terumo Roosevelt sheath placed in right Femoral artery. [id number] twilson 01:50 PM HR=60 bpm, XSJL=304/92 mmhg, SpO2=99.0 %, Resp=18 B/min 01:50 PM 5Fr FL 4 catheter inserted over the wire DN twilson 01:50 PM Wire removed twilson 01:51 PM LCA angiography performed in multiple views. twilson 01:51 PM Recorded Pressure: Ao, HR=60, Condition=Condition 1 (Aorta) Ao 129/77/99 01:51 PM Recorded Pressure: Ao, HR=60, Condition=Condition 1 (Aorta) Ao 134/82/103 01:53 PM HR=60 bpm, DZKX=887/88 mmhg, SpO2=98.0 %, Resp=24 B/min 01:53 PM Wire reinserted twilson 01:53 PM Catheter removed twilson 01:53 PM 5Fr FR 4 catheter inserted over the wire DN twilson 01:53 PM Time: 13:37 Patient comfortable and pain free: Yes twilson 01:53 PM Time: 13:37LOC: 4 = Oriented but drowsy twilson 01:53 PM Wire removed twilson 01:54 PM RCA angiography performed in multiple views. twilson 01:55 PM Wire reinserted twilson 01:56 PM Catheter removed twilson 01:56 PM HR=60 bpm, RVQU=734/77 mmhg, SpO2=97.0 %, Resp=21 B/min 01:58 PM 5Fr Pigtail catheter inserted over the wire DN twilson 01:58 PM Catheter selectively placed in left ventricle twilson 01:58 PM Wire removed twilson :58 PM Recorded Pressure: LV, HR=60, Condition=Condition 1 (Left Ventricle) LV 133/5/17 01:58 PM Bolus angiogram of left Ventricle complete: 10 ml/sec for a total of 30 mls twilson :59 PM HR=60 bpm, DZXU=455/84 mmhg, SpO2=99.0 %, Resp=20 B/min 01:59 PM Recorded Pressure: LV, Ao, HR=60, Condition=Condition 1 (Left Ventricle) LV 138/6/19, (Aorta) Ao 141/72/97 02:00 PM Wire reinserted twilson 02:00 PM Catheter removed twilson 02:00 PM Wire removed twilson 02:00 PM Bolus angiogram of right Femoral complete: 2 ml/sec for a total of 4 mls twilson 02: PM Procedure completed at 14:01 twilson 02:01 PM Sign out completed: Radiation Dose 480.86 mGy Fluoro Time: 2.7 Isovue 370 - 200ml contrast 75 ml given by Aman Brown MD. Complications: NoneCardiac Rehab Consult needed: NoConfirmed administered medications: Yes twilson 02:02 PM HR=62 bpm, QHUL=757/85 mmhg, DeJ4=125.0 %, Resp=24 B/min 02:04 PM Arterial sheath pulled using manual compression and V+ Pad for 15 minutes by Jazlyn Dawn RT (R) twilson 02:04 PM Isovue 370 - 200ml,1 Bottle(s) used. twilson 02:04 PM Post ECG NSR twilson 02:04 PM Post Blood Pressure 143/85 twilson 02:05 PM HR=62 bpm, NVDK=791/90 mmhg, SpO2=99.0 %, Resp=35 B/min 02:06 PM Information taught Cardiac Cath twilson 02:06 PM Education needs Procedure, Plan of Care, and Responsibilities of Patient in Care twilson 02:06 PM Learning barriers :None twilson 02:06 PM Education Methods Verbal twilson 02:06 PM Education evaluation Able to repeat information twilson 02:06 PM Family placed in consult room. twilson 02:08 PM HR=61 bpm, TOHV=474/94 mmhg, SpO2=99.0 %, Resp=22 B/min 02:08 PM Time: 13:53LOC: 4 = Oriented but drowsy twilson 02:08 PM Time: 13:53 Patient comfortable and pain free: Yes twilson 02:08 PM Coronary Dominance: right twilson 02: PM Lesion found in Proximal RCA. Pre Stenosis: 100 Pre ISABELLE Flow: twilson 02:09 PM Right Coronary, Right Posterior Descending Arteries with Right Posterolateral and Acute Marginal branches with 100 % stenosis. If graft is supplying this area, 0 % stenosis twilson 02: PM Lesion found in Mid LAD. Pre Stenosis: 25 Pre ISABELLE Flow: twilson 02:09 PM Mid/Distal Left Anterior Descending Coronary Artery and diagonal branches with 25% stenosis. If graft is supplying this area, 0 % stenosis twilson 02:11 PM HR=60 bpm, TEGX=214/96 mmhg, SpO2=98.0 %, Resp=27 B/min 02:14 PM HR=60 bpm, OERS=396/93 mmhg, SpO2=99.0 %, Resp=34 B/min 02:17 PM HR=60 bpm, UHMW=760/89 mmhg, SpO2=99.0 %, Resp=17 B/min 02:20 PM HR=60 bpm, VXMI=215/85 mmhg, SpO2=99.0 % 02:22 PM Report given to Nichol BRUSH Pt taken to 3A Room #52. 14:21 twilson 02:22 PM Site status No bleeding/hematoma - Rt Groin as reported by Jazlyn Dawn RT (R) at 14:22 twilson 02:22 PM Opsite applied twilson 02:22 PM Patient out of room: 14:22 twilson 02:22 PM Vitals capture stopped. 02:23 PM 14:23 Post Pulses Bilateral DP \\T\\ PT 2+ twilson Complications Complication None Hemodynamics Pressures Site Systolic/A Wave Diastolic/V Wave Mean AO 129 77 99 AO 134 82 103 LV 133 5 17 LV 138 6 19 AO 141 72 97 Post Procedure Information Blood Pressure: 143/85 mmHg Rhythm: NSR Post procedural instructions were given Closure Device Time Device Success/Fail 05/01/2017 2:06:00 PM Manual Compression Successful Site Checks Time Location Status Staff Sheath In? Note 02:22 PM Rt Groin No bleeding/hematoma Jazlyn Dawn RT (R) Pulses Time Site Pre-Procedure Post-Procedure Note 05/01/2017 1:30:00 PM Bilateral DP \\T\\ PT 2+ 05/01/2017 1:30:00 PM Bilateral radial 1+ 2:23:00 PM Bilateral DP \\T\\ PT 2+ Updated by RT Ministerio (R) on 05/01/2017 2:24:07 PM electronically signed on 05/01/2017 2:25:56 PM with status of Final
--- NOTE | 2017-05-01 14:44 | Invasive Diagnostic Lab ---
Name: Alireza Agudelo [facility] Date of Study: 05/01/2017 Date: 1945 Ht: 184.9 cm /72.8 in Medical Record#: [id number] Age: 71 Wt: 92.2 kg / 203.27 lb Account/Order#: [id number] Gender: Male BSA: 2.16 Order #: [id number] Fluoro Dose: 481 mGy BMI: 26.97 Procedure Physician: Aman Brown MD Referring MD: Referring MD: Procedures Performed: LEFT HEART CATH Indications: Non-Stemi Impressions: There is severe one vessel coronary artery disease. There is moderate to severe LV Dysfunction EF 25% Recommendations: Optimal medical therapy of patient's disease. Aggressive risk factor modification. Procedure Access obtained in the right Femoral artery by percutaneous puncture Complications: None Contrast: Isovue 75ml Closure Device: Manual Compression Hemodynamics: Pressures Site Systolic/ A Wave Diastolic/ V Wave End Diastolic/ Mean HR AO 129 77 99 60 AO 134 82 103 60 LV 133 5 17 60 LV 138 6 19 60 AO 141 72 97 60 LV Ventriculography Ejection Method: LV Gram Ejection Fraction: 25% Wall Motion: GU Anterobasal Normal Anterolateral Normal Apical: Akinesis Inferoapical Moderate Hypokinesis Inferobasal Normal Coronary Dominance: right Lesion Findings/Interventions * Left Main Coronary Artery The LMCA is angiographically free of disease. * Left Anterior Descending There is a 25% stenosis in the Mid LAD. * Circumflex The Circumflex is angiographically free of disease. The 1st Marginal is angiographically free of disease. * Right Coronary Artery There is a chronic 100% stenosis in the Proximal RCA. The lesion has collaterals which feed from left to right. Updated by RT Ministerio (R) on 05/01/2017 2:22:27 PM Aman Brown MD electronically signed on 05/01/2017 2:40:56 PM with status of Final
[2017-05-01] MEDS: Acetaminophen 325 MG TABLET PO PRN ×2 (14:50→20:31)
--- NOTE | 2017-05-01 16:22 | Internal Med Progress Note ---
Date of Encounter: 05/01/17 Time of Encounter: 16:20 - Assessment and plan (1) Syncope and collapse Current Visit: No Status: Acute (2) CAD (coronary artery disease) Current Visit: Yes Status: Chronic Qualifiers: Coronary Disease-Associated Artery/Lesion type: [place] artery [place] vs. transplanted heart: [place] heart Associated angina: without angina Qualified Code(s): I25.10 - Atherosclerotic heart disease of [place] coronary artery without angina pectoris (3) HTN (hypertension) Current Visit: Yes Status: Chronic Qualifiers: Hypertension type: essential hypertension Qualified Code(s): I10 - Essential (primary) hypertension (4) Tobacco abuse Current Visit: Yes Status: Chronic (5) Atrial fibrillation Current Visit: Yes Status: Chronic Qualifiers: Atrial fibrillation type: paroxysmal Qualified Code(s): I48.0 - Paroxysmal atrial fibrillation (6) AICD (automatic implantable cardioverter defibrillator) at end of life Current Visit: No Status: Acute Qualifiers: Encounter type: subsequent encounter Qualified Code(s): T82.198D - Other mechanical complication of other cardiac electronic device, subsequent encounter (7) Ventricular fibrillation seen on cardiac rehabilitation program director Current Visit: Yes Status: Acute - Subjective Interval history: Mr. Alireza Santoro is a 71-year-old male who has been transferred from intensive care and he is a new patient for me. He will was admitted for syncope. He underwent V. fib arrest and to use given CPR. He was noted to have A. fib with RVR and ventricular tachycardia and his defibrillator discharge. Cardiology has seen him and amiodarone was added. Echo showed LV ejection fraction 45% with dilated LV . His is planned for left heart catheter however INR is slightly elevated. At this point he is asymptomatic. Patient's sister wanted to know about the defibrillator device interrogation. I suggested to addressed this issue with the cardiology floor coverings installer who has been consulted who are very specialized in this field. - Constitutional Vitals: Temp Pulse Resp BP Pulse Ox 98.1 F 60 16 135/78 98 05/01/17 16:16 05/01/17 16:16 05/01/17 16:16 05/01/17 16:16 05/01/17 16:16 General appearance: Present: cooperative, A&O X 3, pleasant, no acute distress, answers questions appropriately Internal Medicine: Result - Labs CBC & Chem 7: 05/01/17 02:29 05/01/17 02:29 Labs: Short CBC 05/01/17 Range/Units 02:29 WBC 8.5 (4.3-11.1) K/mcL Hgb 14.1 (12.9-16.9) g/dL Hct 41.0 (37.5-50.1) % Plt Count 198 (140-400) K/mcL Neutrophils # 5.2 (1.6-8.9) K/mcL BMP 05/01/17 02:29 Sodium 136 Potassium 3.8 Chloride 105 Carbon Dioxide 22 BUN 13 Creatinine 0.80 Glucose 88 Calcium 8.7 - ABG Interpretation ABG results: PT/INR, D-dimer PT 16.9 Seconds (9.4-12.1) H 05/01/17 02:29 Consult Discharge Plan - Plan Referrals: Joselo Thomas MD [Primary Care Provider] -
[2017-05-01] MEDS: Lisinopril 20 MG TABLET PO SCH (22:27)
[2017-05-01] MEDS: diazePAM 5 MG TABLET PO SCH (22:28)
[2017-05-02 05:40] LABS: INR 1.6; Prothrombin Time 17.1 Seconds (9.4-12.1)
[2017-05-02] MEDS: Aspirin 81 MG TAB.CHEW PO SCH (08:20)
[2017-05-02] MEDS: METAMUCIL PO SCH (08:21)
[2017-05-02] MEDS: SENNOSIDES 25 MG PO SCH (08:21)
[2017-05-02] MEDS: *HR* Amiodarone 200 MG TABLET PO SCH (08:21)
[2017-05-02] MEDS: POLYETHYLENE GLYCOL PO SCH (08:21)
--- NOTE | 2017-05-02 10:24 | Cardiology Progress Note ---
Date of Encounter: 05/02/17 Time of Encounter: 09:00 Assessment and Plan (1) Ventricular fibrillation seen on cardiac rn Current Visit: Yes Status: Acute Per Cardiology: ICD interrogation showed 1 ICD shock for Vfib. Now on amio 200mg PO BID, off digoxin, remains on home BB. Mild trop 0.16 suspect d/t ICD shock-- do not suspect NSTEMI. Mg & K ok. Current EF 45%. Left heart catheterization showed chronically occluded proximal RCA 100% lesion with collaterals left to right. Continue with increased dose of amiodarone. Cardiology will sign off, reconsult as needed, follow-up scheduled. (2) Atrial fibrillation Current Visit: Yes Status: Chronic Per Cardiology: History of PAF-- currently on amiodarone and BB. ICD interrogation showed A. fib with RVR. Telemetry reviewed the past 12 hours shows sinus rhythm with atrial pacing with no recurrence of A. fib. Anti-coagulated with Coumadin, however has been on hold for [facility]. Ideally, would resume, but patient was supposed be holding already for pending tooth extraction on Tuesday. Recommend continue to hold and resume after tooth extraction. INR managed by [place] [facility] --will notify office. Patient will check INR next Tuesday. Patient's verbalized understanding and agreed with plan. No need for bridging. Qualifiers: Atrial fibrillation type: paroxysmal Qualified Code(s): I48.0 - Paroxysmal atrial fibrillation (3) CAD (coronary artery disease) Current Visit: Yes Status: Chronic Per Cardiology: History of CAD with last heart catheterization September 2008 with drug-eluting stent to mid LAD 90% and distal LAD 70% lesion. Current cath shows chronically occluded Prox RCA 100%. CP free. On asa, BB, and statin. Qualifiers: Coronary Disease-Associated Artery/Lesion type: [place] artery [place] vs. transplanted heart: [place] heart Associated angina: without angina Qualified Code(s): I25.10 - Atherosclerotic heart disease of [place] coronary artery without angina pectoris (4) Tobacco abuse Current Visit: Yes Status: Chronic Per Cardiology: Continues to smoke. Smoking cessation encouraged. (5) AAA (abdominal aortic aneurysm) Current Visit: No Status: Chronic Per Cardiology: History of endovascular AAA and left common iliac stent/angioplasty by Dr. Gilmore 10/2016. Qualifiers: Presence of rupture: without rupture Qualified Code(s): I71.4 - Abdominal aortic aneurysm, without rupture Discussion w patient/family: The assessment and plan as outlined above was discussed with the patient and/or family members who expressed understanding and agreement. All questions were answered. Thank you for involving us in the care of your patient. Please call with any questions. Subjective Principal diagnosis: Vfib Interval history: Patient denies any chest pain, shortness of breath, palpitations, or ICD shocks. Reports mild R groin soreness. Objective Vital Signs, Last 4 Hours Temp Pulse Resp BP Pulse Ox 05/02/17 08:27 96 05/02/17 07:41 98.1 F 62 16 120/76 96 General: Conversant, No Apparent Distress HEENT: Atraumatic, Normocephaly, Mucus Membranes Moist Neck: Normal carotid pulses Cardiac: Reg Rate and Rhythm, Normal S1 and S2, No Murmur Lungs: Normal Breath Sounds, No Wheeze, Rales, Rhonchi Neuro: Alert and responsive, No focal deficits noted Skin: No rashes noted on visualized skin, Other (Right groin site trying intact , mild ecchymosis, no hematoma, no bleeding, right pedis and posterior tibial pulses 2+ palpable) Musculoskeletal: No Chest Wall Tenderness Extremities: No Clubbing, No Cyanosis, No Edema, Normal Pulses Other: howard draining clear yellow urine Results 05/01/17 02:29 05/01/17 02:29 Lab Results 05/02/17 04:58 INR 1.6 Active Medications Acetaminophen (Tylenol) 650 mg PO Q6HR PRN PRN Reason: Mild Pain (1-3) Stop: 10/29/17 01:34 Last Admin: 05/01/17 20:31 Dose: 650 mg Amiodarone HCl (Cordarone) 200 mg PO BID [facility] Stop: 10/29/17 21:01 Last Admin: 05/02/17 08:21 Dose: 200 mg Aspirin (Aspirin) 81 mg PO DAILY [facility] Stop: 10/30/17 09:01 Last Admin: 05/02/17 08:20 Dose: 81 mg Atenolol (Tenormin) 150 mg PO HS [facility] Stop: 10/29/17 21:01 Last Admin: 05/01/17 22:27 Dose: 150 mg Atorvastatin Calcium (Lipitor) 40 mg PO HS [facility] Stop: 10/30/17 21:01 Last Admin: 05/01/17 22:27 Dose: 40 mg Cyclobenzaprine HCl (Flexeril) 5 mg PO HS [facility] Stop: 10/29/17 02:46 Last Admin: 05/01/17 22:28 Dose: 5 mg Diazepam (Valium) 5 mg PO HS [facility] Stop: 10/29/17 02:46 Last Admin: 05/01/17 22:28 Dose: 5 mg Lisinopril (Zestril) 20 mg PO HS [facility] Stop: 10/29/17 02:46 Last Admin: 05/01/17 22:27 Dose: 20 mg Naloxone HCl (Narcan) 0.4 mg IVP Q2MIN PRN PRN Reason: Opioid Reversal Stop: 10/29/17 01:34 Ondansetron HCl (Zofran) 4 mg IVP Q8HR PRN PRN Reason: Nausea And Vomiting Stop: 10/29/17 01:34 Pharmacy Profile Note (Patient Taking Own Medication) 4 each PO DAILY [facility] Stop: 10/29/17 22:01 Last Admin: 05/02/17 08:21 Dose: Not Given Pharmacy Profile Note (Patient Taking Own Medication) 17 each PO BID [facility] Stop: 10/29/17 21:01 Last Admin: 05/02/17 08:21 Dose: Not Given Pharmacy Profile Note (Patient Taking Own Medication) 2 each PO DAILY [facility] Stop: 10/29/17 21:16 Last Admin: 05/02/17 08:21 Dose: Not Given - Imaging and Cardiology Cardiac cath: report reviewed - EKG Interpretation EKG results cardiology: other (avg HR 64, no VT or VF noted) Consult Discharge Plan - Plan Referrals: Joselo Thomas MD [Primary Care Provider] -
[2017-05-02 11:26] VITALS: BP 115/72
--- NOTE | 2017-05-02 13:42 | Discharge Summary ---
Date of Encounter: 05/02/17 Time of Encounter: 13:41 - Discharge Diagnosis (1) Ventricular fibrillation seen on clinical research monitor Priority: Primary Status: Acute (2) Syncope and collapse Priority: Primary Status: Acute Comments: Secondary to ventricular fibrillation (3) CAD (coronary artery disease) Priority: Secondary Status: Chronic Qualifiers: Coronary Disease-Associated Artery/Lesion type: [place] artery [place] vs. transplanted heart: [place] heart Associated angina: without angina Qualified Code(s): I25.10 - Atherosclerotic heart disease of [place] coronary artery without angina pectoris (4) HTN (hypertension) Priority: Secondary Status: Chronic Qualifiers: Hypertension type: essential hypertension Qualified Code(s): I10 - Essential (primary) hypertension (5) Tobacco abuse Priority: Secondary Status: Chronic (6) Atrial fibrillation Priority: Secondary Status: Chronic Qualifiers: Atrial fibrillation type: paroxysmal Qualified Code(s): I48.0 - Paroxysmal atrial fibrillation (7) AAA (abdominal aortic aneurysm) Priority: Secondary Status: Chronic Qualifiers: Presence of rupture: without rupture Qualified Code(s): I71.4 - Abdominal aortic aneurysm, without rupture (8) Ischemic cardiomyopathy Priority: Secondary Status: Chronic - Discharge Medications Prescriptions: Amiodarone [Cordarone] 200 mg PO BID #60 tablet Home Medications: Aspirin [Lo-Dose Aspirin EC] 81 mg PO DAILY 04/29/17 [History] Atenolol [Tenormin] 150 mg PO DAILY 04/29/17 [History] Benazepril HCl [Lotensin] 20 mg PO DAILY 04/29/17 [History] Cyclobenzaprine [Flexeril] 10 mg PO BID 04/29/17 [History] Lactobacillus Acidophilus [Acidophilus] 3 each PO DAILY 04/29/17 [History] Polyethylene Glycol 3350 [MiraLAX bowel prep] 17 gm PO DAILY 04/29/17 [History] Warfarin [Coumadin] 4 mg PO Q48H 04/29/17 [History] Warfarin [Coumadin] 4.5 mg PO Q48H 04/29/17 [History] hydroCHLOROthiazide [Hydrochlorothiazide] 12.5 mg PO DAILY 04/29/17 [History] Amiodarone [Cordarone] 200 mg PO BID #60 tablet 05/02/17 [Rx] Allergies/Adverse Reactions: Allergies No Known Allergies Allergy (Verified 04/29/17 02:00) Procedures/tests Complete & Pending: Procedures Performed prior 72 hours Category Date Time Status CL Cardiac Catheterization [CL] Routine Md Senior Research Scientist 05/01/17 09:57 Completed Date of admission: 04/29/17 03:13 Primary care physician: Joselo Thomas MD Consults: 04/29/17 08:28 Consult to Cardiology [CONS] Routine Comment: Dr House to call Cardiology Consulting Provider: Cardiology Elissa Reason for Consult: V Tach, elevated trop Call Completed: Yes 04/29/17 12:35 Consult to Electrophysiology (EP) [CONS] Routine Consulting Provider: Electrophysiology Elissa Reason for Consult: Syncope Call Completed: Yes - Patient Status Disposition: Home, Self-Care Condition: Good Overall status at discharge: patient is progressing back to baseline - Discharge Instructions Follow Up With: Joselo Thomas MD [Primary Care Provider] - Additional Instructions: Follow-up with primary care physician within the next 7 days, follow up with cardiology within the next 1-2 weeks. Hold Coumadin and aspirin until tooth extraction. Increased dose of amiodarone to 200 mg twice a day. Discontinue digoxin, continue atenolol. Quit smoking - Diet and Activity Activity: increase activity as tolerated Diet: low fat, low cholesterol Hospital course: Mr. Agudelo is a 71 year old male with a past medical history of History of endovascular AAA and left common iliac stent/angioplasty by Dr. Gilmore 10/2016, , arthritis, atrial fibrillation on Coumadin, coronary artery disease, hyperlipidemia, hypertension, myocardial infarction, peripheral artery disease, other (Sudden cardiac arrest. Presenting for a syncopal event. Medical history is significant for myocardial infarction associated with cardiac arrest associated with memory impairment from prolonged resuscitation. He has an AICD in place and a history of PAF. He 's had periods of AF RVR associated with device discharge leading to the addition of amiodarone. He recently underwent stress testing in October 2016 demonstrating infarct without ischemia. LVEF 40-45% range on prior studies. Last [facility] was in 2007 where he underwent PCI to mid and distal LAD. Patient stated he had feeling of heart racing for several hours and then in the evening after letting his dog back in the house, he suddenly passed out without warning. He thinks he was unconscious for a few seconds. He woke up without confusion. He called 911. He denies recent chest pain. He admits compliance with medications. He denies new or OTC medications. CD interrogation showed 1 ICD shock for Cardiology recommended to increase his dose of to 200mg PO BID, off digoxin, remains on home atenolol. Mild trop 0.16 suspect d/t ICD shock-- do not suspect NSTEMI. Mg & K ok. Current EF 45%. Left heart catheterization showed chronically occluded proximal RCA 100% lesion with collaterals left to right. Continue with increased dose of amiodarone. Cardiology signed off. AICD interrogation showed A. fib with RVR. Telemetry reviewed the past 12 hours shows sinus rhythm with atrial pacing with no recurrence of A. fib. Anti- coagulated with Coumadin, however has been on hold for [facility]. Ideally, would resume, but patient was supposed be holding already for pending tooth extraction on Tuesday. Recommend continue to hold and resume after tooth extraction. - Time Spent with Patient Total time spent providing and/or coordinating discharge services: Greater than 30 minutes (40 min) - Constitutional Vitals: Temp Pulse Resp BP Pulse Ox 97.7 F 60 16 115/72 96 05/02/17 11:22 05/02/17 11:22 05/02/17 11:22 05/02/17 11:22 05/02/17 11:22 General appearance: Present: cooperative, A&O X 3, pleasant, no acute distress, answers questions appropriately - Head Head exam: Present: atraumatic, normocephalic - Eye Eye exam: Present: PERRL, conjuntiva pink, sclera anicteric Pupils: Present: PERRL - Neck Neck exam general surgery: Present: supple, trachea midline. Absent: lymphadenopathy - Respiratory Respiratory exam: Present: CTAB. Absent: accessory muscle use, rales, rhonchi, wheezes - Cardiovascular Cardiovascular exam: Present: RRR, +S1, +S2. Absent: diastolic murmur, gallop, rubs, systolic murmur - GI/Abdominal GI/Abdominal exam: Present: normal bowel sounds, soft, no peritoneal signs. Absent: distended, tenderness - Extremities Exam Extremities exam: Present: warm, radial pulses palpable and symetrical. Absent : calf tenderness, cyanotic, pedal edema - Neurological Exam Neurological exam: Present: CN II-XII intact, oriented X3, no focal deficits. Absent: pronater drift, facial droop, speech deficit - Skin Skin exam: Present: dry, intact
== END 2017-05-02 15:46 | disposition home or self-care (01) | DRG 287 ==
LOC: ICNU → SUATTDRO 04-29 03:13 → 3ANU 05-01 01:05
PROVIDERS: ADMIT Family Medicine; ATTEND Internal Medicine